=== PATIENT | female | born 1945 | race Two or more races ===

== ENCOUNTER 2017-12-26 09:14 | Outpatient (CLI) | payer OTHER ==
[~2017-12-26 09:14] MED LIST: LIPITOR20 MG; NAMENDA10 MG; ZOLOFT25 MG
== END 2017-12-26 09:28 | disposition home or self-care (01) ==
LOC: LAB 09:14
DX: D64.89 Other specified anemias (principal); E11.9 Type 2 diabetes mellitus without complications; E55.9 Vitamin D deficiency, unspecified; N30.81 Other cystitis with hematuria; E78.2 Mixed hyperlipidemia; E03.8 Other specified hypothyroidism

== ENCOUNTER 2017-12-26 10:09 | Outpatient (CLI) | payer OTHER | END 2017-12-26 10:16 | disposition home or self-care (01) | LOC: MAMO-SONO 10:09 | DX: Z12.31 Encounter for screening mammogram for malignant neoplasm of breast (principal); Z87.898 Personal history of other specified conditions; N60.11 Diffuse cystic mastopathy of right breast; N60.12 Diffuse cystic mastopathy of left breast ==

== ENCOUNTER 2018-03-17 08:25 | Outpatient (CLI) | payer OTHER | END 2018-03-17 08:34 | disposition home or self-care (01) | LOC: LAB 08:25 | DX: E11.29 Type 2 diabetes mellitus with other diabetic kidney complication (principal); I10 Essential (primary) hypertension ==

== ENCOUNTER 2018-05-16 07:39 | Outpatient (CLI) | payer OTHER | END 2018-05-16 15:35 | disposition home or self-care (01) | LOC: RAD 07:39 | DX: M54.5 Low back pain (principal); M25.551 Pain in right hip; M25.552 Pain in left hip; M19.90 Unspecified osteoarthritis, unspecified site ==

== ENCOUNTER → 2018-10-04 06:32 | Outpatient (CLI) | payer OTHER | END | disposition home or self-care (01) | LOC: LAB 06:32 | DX: E78.49 Other hyperlipidemia (principal); E56.9 Vitamin deficiency, unspecified; I10 Essential (primary) hypertension; E11.9 Type 2 diabetes mellitus without complications; E03.8 Other specified hypothyroidism ==

== ENCOUNTER 2019-02-05 07:52 | Outpatient (CLI) | payer OTHER | END 2019-02-05 07:58 | disposition home or self-care (01) | LOC: LAB 07:52 | DX: E78.2 Mixed hyperlipidemia (principal) ==

== ENCOUNTER 2019-06-11 09:13 | Outpatient (CLI) | payer OTHER | END 2019-06-11 09:30 | disposition home or self-care (01) | LOC: LAB 09:13 | DX: D64.89 Other specified anemias (principal); E11.29 Type 2 diabetes mellitus with other diabetic kidney complication; E03.8 Other specified hypothyroidism; N39.0 Urinary tract infection, site not specified; Z12.11 Encounter for screening for malignant neoplasm of colon; E55.9 Vitamin D deficiency, unspecified ==

== ENCOUNTER 2019-06-11 09:16 | Outpatient (CLI) | payer OTHER | END 2019-06-11 09:29 | disposition home or self-care (01) | LOC: MAMO-SONO 09:16 | DX: Z12.31 Encounter for screening mammogram for malignant neoplasm of breast (principal); Z87.898 Personal history of other specified conditions; R10.84 Generalized abdominal pain; N60.11 Diffuse cystic mastopathy of right breast; N60.12 Diffuse cystic mastopathy of left breast ==